=== PATIENT | male | born 1985 | race Caucasian/White ===

== ENCOUNTER 2023-08-25 13:21 | Emergency (ER) | payer MEDICAID, SELFPAY ==
[2023-08-25 13:25] VITALS: BP 126/87; PULSE 84; RESP 18; TEMP 36.6; O2SAT 99; BMI 22.4
--- NOTE | 2023-08-25 14:16 | EDS_ITS ---
HPI <HEMA Thomas - Last Filed: 08/25/23 15:38> History of Present Illness Chief Complaint: Other, Pain/Inj Narrative Narrative: Patient here for 2 separate issues. The first is several months of intermittent chest pain/tightness. He states sometimes he has associated jolts of pain in his upper and lower extremities. He will feel hot and cold sensation in his head and neck. Occasionally he has ear ringing and dizziness. It is not lightheadedness like he might pass out. He is not necessarily describing movement but states 1 time it was worse after he lay down in bed. He has had the chest tightness today for about 3 hours. In the past has tried prn Nexium without improvement. He states he had a normal EKG in his primary care's office and they ordered an echo but insurance denied it. 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 The second concern is he feels tissue coming out of his rectum when he strains to have a BM and he manually reduces it. It is not painful and there is no bleeding. He saw GI a while ago and was told he probably has IBS constipation and had a normal colonoscopy. He takes MiraLAX and fiber in the morning and has 1-2 daily normal bowel movements. After googling it he thinks he might have rectal prolapse and is here to get checked. [facility] <HEMA Thomas - Last Filed: 08/25/23 15:38> [facility] Medical History (Updated 08/25/23 @ 14:57 by HEMA Thomas) Concussion Drug abuse in remission IBS (irritable bowel syndrome) Home Medications bupropion HCl 150 mg 24 hr tablet, extended release (Wellbutrin XL) 150 mg PO DAILY 08/25/23 [History Last Taken Unknown] meclizine 25 mg tablet 25 mg PO 4X/DAY PRN PRN Dizziness #20 tabs 08/25/23 [Rx Last Taken Unknown] omeprazole 20 mg capsule,delayed release 20 mg PO DAILY #30 CAPSULES 08/25/23 [Rx Last Taken Unknown] polyethylene glycol 3350 17 gram/dose oral powder (Miralax) 4 g PO DAILY 08/25/23 [History Last Taken Unknown] psyllium husk 3.4 gram/5.4 gram oral powder (Metamucil) 1 tbsp PO DAILY 08/25/23 [History Last Taken Unknown] Allergy/AdvReac Type Severity Reaction Status Date / Time No Known Allergies Allergy Verified 08/25/23 13:25 Family History (Updated 08/25/23 @ 14:27 by Cyndi Us) Grandmother Heart disease Cancer Grandfather Heart disease Cancer Social History Smoking Status: Unknown if ever smoked ROS <HEMA Thomas - Last Filed: 08/25/23 15:38> ROS ED ROS Narrative Constitutional: Negative for fever, chills, malaise. CVS: Positive for chest pain. Negative for palpitations, syncope. Respiratory: Negative for shortness of breath, cough. GI: Negative for abdominal pain, nausea, vomiting, melena, hematochezia. : Negative for dysuria, hematuria or frequency. Neuro: Negative for headache, motor/sensory dysfunction. EXAM <HEMA Thomas - Last Filed: 08/25/23 15:38> Physical Exam Narrative Exam Narrative: CONST: Patient sitting in no acute distress. EYES: Normal inspection. ENT: Normal inspection, moist mucous membranes. NECK: Normal inspection. RESP: No respiratory distress, CTAB. CVS: Regular rate and rhythm, no murmur, no gallop. ABD: Soft and nontender, no guarding or rebound, nondistended. Rectum: Normal external inspection, no visible hemorrhoids or prolapse when tin ring down. SKIN: Color normal, no rash, warm, dry, intact. EXTREMITIES: Normal appearance, no pedal edema. NEURO: Oriented x4. PSYCH: Normal affect. Const Vital Signs: 08/25/23 13:25 08/25/23 14:28 08/25/23 14:28 Temperature 98 F Temperature Source Temporal Pulse Rate 84 Respiratory Rate 18 Respiratory Effort Normal Normal Respiratory Pattern Normal Blood Pressure 126/87 H Blood Pressure Mean 100 Pulse Ox 99 Oxygen Delivery Method Room Air <Dr. Maurice Roberts MD - Last Filed: 08/25/23 18:36> Physical Exam Const Vital Signs: 08/25/23 13:25 08/25/23 14:28 08/25/23 14:28 Temperature 98 F Temperature Source Temporal Pulse Rate 84 Respiratory Rate 18 Respiratory Effort Normal Normal Respiratory Pattern Normal Blood Pressure 126/87 H Blood Pressure Mean 100 Pulse Ox 99 Oxygen Delivery Method Room Air MDM <HEMA Thomas - Last Filed: 08/25/23 15:38> [facility] Narrative Medical decision making narrative: Patient evaluated for intermittent symptoms of dizziness and chest pain. He is poor at describing the symptoms. 1 element of it sounds like he may have peripheral vertigo. His cardiac workup today is normal. CBC, BMP, troponin all within normal limits. CXR shows no acute process. He is PERC negative. For this issue I think he can follow-up with his primary care doctor. I prescribed meclizine as needed for dizziness. He was also concerned that after straining he feels tissue protrude from his rectum. His abdominal exam is benign and he has no evidence of hemorrhoid or rectal prolapse on exam. His symptoms sound more consistent with internal hemorrhoids. He is already using the correct suppository treatments and has an established GI doctor he can follow-up with as needed. Patient reassured and discharged in stable condition. Lab Data Attestation: I reviewed the patient's lab results. Labs: Laboratory Results - last 24 hr 08/25/23 14:22 WBC 8.2 RBC 5.99 Hgb 15.8 Hct 48.1 MCV 80.3 MCH 26.4 L MCHC 32.8 RDW Std Deviation 40.7 RDW Coeff of Marivel 14.0 Plt Count 181 MPV 12.0 Immature Gran % (Auto) 0.100 Neut % (Auto) 62.3 Lymph % (Auto) 30.0 [place] % (Auto) 5.9 Eos % (Auto) 1.5 Baso % (Auto) 0.2 Absolute Neuts (auto) 5.1 Absolute Lymphs (auto) 2.45 Nucleated RBC % 0 Sodium 140 Potassium 3.9 Chloride 106 Carbon Dioxide 29.0 Anion Gap 5 BUN 18 Creatinine 1.04 Estim Creat Clear Calc 114.11 Est GFR (MDRD) Af Amer 104 Est GFR (MDRD) Non-Af 86 BUN/Creatinine Ratio 17.3 Glucose 101 Calcium 9.5 Troponin I High Sens 3 Radiography Diagnostic Testing: Clinical Impression(s) from Imaging Studies Chest X-Ray 08/25/23 14:45 IMPRESSION: Hyperinflation. No focal infiltrate is seen. Electronically Signed: Greg Cardona MD at 15:15 EST , ED attending interpretation of 1-view chest x-ray shows normal heart size, no a cute infiltrate, edema, or effusion. <Dr. Maurice Roberts MD - Last Filed: 08/25/23 18:36> [facility] Lab Data Labs: Laboratory Results - last 24 hr 08/25/23 14:22 WBC 8.2 RBC 5.99 Hgb 15.8 Hct 48.1 MCV 80.3 MCH 26.4 L MCHC 32.8 RDW Std Deviation 40.7 RDW Coeff of Marivel 14.0 Plt Count 181 MPV 12.0 Immature Gran % (Auto) 0.100 Neut % (Auto) 62.3 Lymph % (Auto) 30.0 [place] % (Auto) 5.9 Eos % (Auto) 1.5 Baso % (Auto) 0.2 Absolute Neuts (auto) 5.1 Absolute Lymphs (auto) 2.45 Nucleated RBC % 0 Sodium 140 Potassium 3.9 Chloride 106 Carbon Dioxide 29.0 Anion Gap 5 BUN 18 Creatinine 1.04 Estim Creat Clear Calc 114.11 Est GFR (MDRD) Af Amer 104 Est GFR (MDRD) Non-Af 86 BUN/Creatinine Ratio 17.3 Glucose 101 Calcium 9.5 Troponin I High Sens 3 Radiography Diagnostic Testing: Clinical Impression(s) from Imaging Studies Chest X-Ray 08/25/23 14:45 IMPRESSION: Hyperinflation. No focal infiltrate is seen. Electronically Signed: Greg Cardona MD at 15:15 EST , Treatment and Re-Evaluation Comments:: I have personally performed a face to face assessment of the patient and have reviewed the SARAI Note. I performed a substantive portion of the visit including all aspects of the following. My sol findings include: History is episodes of diffuse body symptoms, part of which is discomfort in his chest, part of which radiates down his arms and legs and part of which is vertiginous. Last for hours at a time. Not currently present. Also having separate issue where when he bears down he is having a small uncomfortable mass present in his perianal area that he can push back inside. No bleeding. Exam is well-appearing, a little hyperactive but no chorea or tremor. Lungs clear, abdomen soft nontender nondistended, heart RRR no M. On rectal, there is no tenderness or abscess or bleeding. No obvious external hemorrhoids. Medical Decison Making cardiac workup is normal patient reassured. We also advised stool softening due to what is likely an internal prolapsed hemorrhoid and how to treat that. Other additions or changes: [None] Discharge Plan Triage Chief Complaint: Other, Pain/Inj Other Complaint: Chest Other ED Midlevel Provider: Lina Natarajan ED Provider: Maurice Roberts Dx/Rx/DC Orders Clinical Impression: Internal prolapsed hemorrhoids, Atypical chest pain Instructions: ED Hemorrhoids Prescriptions: New meclizine 25 mg tablet 25 mg PO 4X/DAY PRN PRN (Reason: Dizziness) Qty: 20 0RF omeprazole 20 mg capsule,delayed release(DR/EC) 20 mg PO DAILY Qty: 30 0RF No Action bupropion HCl [Wellbutrin XL] 150 mg tablet extended release 24 hr 150 mg PO DAILY Metamucil 3.4 gram/5.4 gram powder 1 tbsp PO DAILY Rx Instructions: mix into at least 8 oz of water or juice before administering polyethylene glycol 3350 [Miralax] 17 gram/dose powder 4 g PO DAILY Primary Care Provider: Care Physician,No Primary Activity Restrictions/Additional Instructions: Your testing today was within normal limits. Since you are describing episodes which may be vertigo causing your dizziness I prescribed meclizine. You take this as needed when the dizziness occurs. I also recommend you take Nexium once a day in case the symptoms are related to acid reflux. Please follow-up with your primary care doctor. Continue the hemorrhoid treatments you are using. Disposition Disposition: Home, Self Care Discharge Date/Time: 08/25/23 15:34
[2023-08-25 14:34] LABS: Absolute Lymphocyte Count 2.45 X10^3/uL (0.83-4.51); Absolute Neutrophil Count 5.1 X10^3/uL (2.0-7.7); Basophil# 0.02 X10^3/uL; Basophil% 0.2 % (0-1); Eosinophil# 0.12 X10^3/uL; Eosinophils% 1.5 % (0-5); Hematocrit 48.1 % (40-54); Hemoglobin 15.8 g/dL (13.0-16.5); Lymphocyte # 2.45 X10^3/ul (0.83-4.51); Mean Corp Hgb Conc 32.8 g/dL (32-36); Mean Corpuscular Hgb 26.4 pg (27.0-32.0); Mean Corpuscular Volume 80.3 fL (80-94); Monocyte# 0.48 X10^3/uL; Monocyte% 5.9 % (0-10); NRBC Flagged by Analyzer 0 % (0-5); Neutrophil # 5.08 X10^3/uL (2.7-7.7); Neutrophil % 62.3 % (47-70); Platelet Count 181 K/mm3 (150-450); RBC Distribution Width SD 40.7 fl (35.1-43.9); Red Blood Count 5.99 M/mm3 (4.6-6.2); White Blood Count 8.2 K/mm3 (4.4-11.0)
--- NOTE | 2023-08-25 14:45 | RAD_ITS ---
STUDY: X-RAY CHEST REASON FOR EXAM: Male, 37 years old. 4 month history of intermittent chest pain. TECHNIQUE: PA and lateral views of the chest. COMPARISON: None. FINDINGS: There is hyperinflation of the lungs consistent with chronic obstructive lung disease (COPD). There is no demonstrated pleural abnormality. Normal size heart. Normal mediastinum and kyle. Normal visualized pulmonary arteries. Normal visualized aortic arch and descending thoracic aorta. Normal visualized thoracic spine. Normal visualized ribs, clavicles, and shoulders. There is no demonstrated abnormality of the visualized soft tissue structures of the upper abdomen. RAD/Chest PA and Lateral IMPRESSION: Hyperinflation. No focal infiltrate is seen. Electronically Signed: Greg Cardona MD at 15:15 EST ,
[2023-08-25 14:52] LABS: Anion Gap 5 (5-15); BUN 18 mg/dL (7-18); BUN/Creat Ratio 17.3 RATIO (10-20); Calcium,Total 9.5 mg/dL (8.5-10.1); Chloride 106 mmol/L (98-107); Creatinine, Serum 1.04 mg/dL (0.70-1.30); EST Glomerular Filtration Rate 86 mL/min (>60); Est Glom Filt Rate - Afr Amer 104 mL/min (>60); Estimated Creatinine Clearance 114.11 ml/min; Glucose 101 mg/dL (74-106); Potassium 3.9 mmol/L (3.5-5.1); Sodium Level 140 mmol/L (136-145); Troponin-I HS 3 pg/mL (3.0-78.0)
== END 2023-08-25 15:34 | disposition home or self-care (01) ==
LOC: ED 15:00
PROVIDERS: Physician Assistant; Emergency Provider Emergency Medicine; Visit Provider Emergency Medicine
DX: R07.89 Other chest pain (principal); K64.8 Other hemorrhoids; Z79.899 Other long term (current) drug therapy; R42 Dizziness and giddiness
CPT/HCPCS: 71046; 80048; 84484; 85025; 99284

== ENCOUNTER 2023-11-07 21:59 | Emergency (ER) | payer MEDICAID, SELFPAY ==
[2023-11-07 22:00] VITALS: BP 147/86; PULSE 86; RESP 18; TEMP 36.3; O2SAT 100; BMI 23.4
--- NOTE | 2023-11-07 22:18 | ED.VIS.LOWEX ---
HPI History of Present Illness Chief Complaint: Wound Informant: patient Narrative Narrative: 1-2 days spontaneous onset pain for red area that seems to be increasing in size throughout the day on his left lower leg and is also noticed today that he has a sore red area on his left small toe/webspace between toes 4-5. No systemic symptoms. 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 He does not use IV drugs now. [facility] Medical History Concussion Drug abuse in remission IBS (irritable bowel syndrome) Home Medications bupropion HCl 150 mg 24 hr tablet, extended release (Wellbutrin XL) 150 mg PO DAILY 08/25/23 [History Last Taken Unknown] meclizine 25 mg tablet 25 mg PO 4X/DAY PRN PRN Dizziness #20 tabs 08/25/23 [Rx Last Taken Unknown] omeprazole 20 mg capsule,delayed release 20 mg PO DAILY #30 CAPSULES 08/25/23 [Rx Last Taken Unknown] polyethylene glycol 3350 17 gram/dose oral powder (Miralax) 4 g PO DAILY 08/25/23 [History Last Taken Unknown] psyllium husk 3.4 gram/5.4 gram oral powder (Metamucil) 1 tbsp PO DAILY 08/25/23 [History Last Taken Unknown] sulfamethoxazole 800 mg-trimethoprim 160 mg tablet 1 tab PO BID #20 TABLETS 11/07/23 [Rx Last Taken Unknown] Allergy/AdvReac Type Severity Reaction Status Date / Time No Known Allergies Allergy Verified 08/25/23 13:25 Family History (Updated 08/25/23 @ 14:27 by Cyndi Us) Grandmother Heart disease Cancer Grandfather Heart disease Cancer Social History Smoking Status: Unknown if ever smoked ROS ROS ED Constitutional Constitutional ED: Denies chills or fever(s) Musculoskeletal Musculoskeletal: Reports extremity pain; Denies neck pain Integumentary Reports as per HPI, rash and wounds; Denies Abrasions Neurologic Neurologic: Denies paresthesias or weakness EXAM Physical Exam Const Vital Signs: 11/07/23 22:00 Temperature 97.4 F L Temperature Source Temporal Pulse Rate 86 Respiratory Rate 18 Blood Pressure 147/86 H Blood Pressure Mean 106 Pulse Ox 100 Oxygen Delivery Method Room Air Positive well nourished and well developed General Appearance ED: well developed and NAD Neck full ROM and supple Back/Spine normal ROM and normal to inspection Extremity full ROM Extremity Narrative: All compartments soft and nondistended left lower extremity, full range of motion all joints, see below for skin findings. Neuro oriented x3, no focal motor deficits and no sensory deficits noted Sensorium / Orientation: alert Psych mental status grossly normal and thought process normal Skin Skin Narrative: Very tender wheal and flare appearance lesion left lower leg, proximally and laterally. Does not involve knee joint. The diameter of the flare is approximately 3-4 cm, the central erythema/induration is 1 cm. There is no fluctuance or collection present. In the left foot, there is mildly tender erythema just emanating into the forefoot from the webspace between toes 4 and 5. The small toe appears to be a little erythematous, blanching, but nontender. There is no break in the skin or obvious nidus for infection, there is sign of a slight amount of white epidermal discoloration suggesting possible mild athlete's foot here. MDM MDM MDM Narrative Medical decision making narrative: The proximal left lower leg lesion is consistent with an early MRSA infection. Starting the patient on Bactrim, we discussed returning to the ER for reevaluation and possible incision and drainage if it gets significantly worse in the next 24 to 48 hours. There is nothing to drain at this time. Discharge Plan Triage Chief Complaint: Wound ED Provider: Maurice Roberts Dx/Rx/DC Orders Clinical Impression: MRSA infection, non-invasive Instructions: ED Abscess Antibiotic Treatment Only, Staph MRSA Prescriptions: New sulfamethoxazole-trimethoprim [sulfamethoxazole-trimethoprim] 800-160 mg tablet 1 tab PO BID Qty: 20 0RF No Action bupropion HCl [Wellbutrin XL] 150 mg tablet extended release 24 hr 150 mg PO DAILY Metamucil 3.4 gram/5.4 gram powder 1 tbsp PO DAILY Rx Instructions: mix into at least 8 oz of water or juice before administering polyethylene glycol 3350 [Miralax] 17 gram/dose powder 4 g PO DAILY meclizine 25 mg tablet 25 mg PO 4X/DAY PRN PRN (Reason: Dizziness) Qty: 20 0RF omeprazole 20 mg capsule,delayed release(DR/EC) 20 mg PO DAILY Qty: 30 0RF Primary Care Provider: Care Physician,No Primary Referrals: Doctor,Your [Non-Staff] - As Needed Disposition Disposition: Home, Self Care
[2023-11-07] MEDS: Smz/Tmp Ds Tablet 1 TABLET PO (22:22)
== END 2023-11-07 22:45 | disposition home or self-care (01) ==
LOC: ED 22:29
PROVIDERS: Emergency Provider Emergency Medicine; PCP Family Medicine; Visit Provider Emergency Medicine
DX: A49.02 Methicillin resistant Staphylococcus aureus infection, unspecified site (principal)
CPT/HCPCS: 99282